=== PATIENT | male | born 1945 | race Caucasian/White ===

== ENCOUNTER 2024-10-20 22:49 | Outpatient (REF) | payer MEDICARE, SELFPAY ==
[2024-10-20 12:11] LABS: Abs Immature Grans 0.01 10^3/uL (0.0-0.06); Absolute Basophil Count 0.01 10^3/uL (0.0-0.2); Absolute Eosinophil Count 0.08 10^3/uL (0.0-0.7); Absolute Monocyte Count 0.26 10^3/uL (0.1-0.8); Absolute Neutrophil Count 1.53 10^3/uL (1.2-6.7); Basophils % 0.4 %; Eosinophils % 3.3 %; HCT 36.3 % (40.0-50.0); HGB 12.2 g/dL (13.5-17.5); Immature Grans % 0.4 %; Lymphocytes % 20.9 %; MCH 30.3 pg (27.0-33.0); MCHC 33.6 % (32.0-36.0); MCV 90 fL (80-95); MPV 9.9 fL (8.0-11.0); Monocytes % 10.9 %; Neutrophils % 64.1 %; Platelet Count 171 10^3/uL (130-400); RBC 4.03 10^6/uL (4.36-5.78); RDW 15.7 % (11.8-14.1); RDW-SD 52.1 fL; WBC 2.39 10^3/uL (4.4-10.8)
[2024-10-21 10:08] LABS: IgG 943 mg/dL (610-1616)
== END 2024-10-20 22:50 | disposition home or self-care (01) ==
LOC: LBN 22:49
PROVIDERS: Internal Medicine Hematology & Oncology; PCP Internal Medicine; Visit Provider Nurse Practitioner Adult Health
DX: D80.1 Nonfamilial hypogammaglobulinemia (principal); C91.10 Chronic lymphocytic leukemia of B-cell type not having achieved remission; B60.00 Babesiosis, unspecified
CPT/HCPCS: 82784; 85025

== ENCOUNTER 2025-02-02 02:53 | Outpatient (CLI) | payer MEDICARE, SELFPAY ==
[2025-02-02 08:59] LABS: Abs Immature Grans 0.06 10^3/uL (0.0-0.06); Absolute Basophil Count 0.02 10^3/uL (0.0-0.2); Absolute Eosinophil Count 0.03 10^3/uL (0.0-0.7); Absolute Lymphocyte Count 0.35 10^3/uL (1.2-3.4); Absolute Neutrophil Count 2.13 10^3/uL (1.2-6.7); Basophils % 0.7 %; Eosinophils % 1.1 %; HCT 30.6 % (40.0-50.0); Immature Grans % 2.2 %; Lymphocytes % 12.5 %; MCH 31.1 pg (27.0-33.0); MCHC 32.7 % (32.0-36.0); MCV 95 fL (80-95); MPV 9.1 fL (8.0-11.0); Monocytes % 7.2 %; Neutrophils % 76.3 %; Nucleated RBC 0.7 % (0.0-0.3); Platelet Count 312 10^3/uL (130-400); RBC 3.22 10^6/uL (4.36-5.78); RDW 26.8 % (11.8-14.1); RDW-SD 87.2 fL; Reticulocyte 3.1 % (0.5-2.4); WBC 2.79 10^3/uL (4.4-10.8)
[2025-02-02 09:15] LABS: Anisocytosis 2+; Diff Comment RBC Morph Reviewed
[2025-02-02 09:41] LABS: ALT 46 U/L (16-63); AST 41 U/L (15-37); Albumin 3.5 g/dL (3.4-5.0); Alkaline Phosphatase 147 U/L (46-116); Anion Gap 6.6 mmol/L (3-11); BUN 25 mg/dL (7-18); Bilirubin, Total 0.5 mg/dL (0.2-1.0); CO2 28.4 mmol/L (21.0-32.0); CREATININE 0.8 mg/dL (0.70-1.30); Calcium 9.2 mg/dL (8.5-10.1); Chloride 106 mmol/L (98-107); Estimated GFR 90.02 (mL/min/1.73m2); Glucose 78 mg/dL (74-106); Potassium 3.7 mmol/L (3.5-5.1); Sodium 141 mmol/L (136-145); Total Protein 6.6 g/dL (6.4-8.2)
[2025-02-02 09:42] LABS: Ferritin > 2000 ng/mL (26-388); Folate > 20.0 ng/mL (8.6-20.0)
[2025-02-02 09:54] LABS: LDH 464 U/L (85-227)
[2025-02-02 18:08] LABS: Fibrinogen 318 mg/dL (171-384)
[2025-02-03 07:55] LABS: IgA 17 mg/dL (85-499); IgG 534 mg/dL (610-1616); IgM 30 mg/dL (35-242)
== END 2025-02-02 02:54 | disposition home or self-care (01) ==
PROVIDERS: PCP Internal Medicine; Visit Provider Internal Medicine Hematology & Oncology
DX: C91.12 Chronic lymphocytic leukemia of B-cell type in relapse (principal); D76.1 Hemophagocytic lymphohistiocytosis; D80.1 Nonfamilial hypogammaglobulinemia; B60.00 Babesiosis, unspecified
CPT/HCPCS: 36415; 80053; 82784; 85384; 86850; 86900; 86901; 82728; 82746; 83615; 85025; 85045

== ENCOUNTER 2025-04-20 09:41 | Outpatient (CLI) | payer MEDICARE, SELFPAY ==
[2025-04-20 09:56] LABS: Ferritin 1645 ng/mL (26-388)
[2025-04-20 10:06] LABS: LDH 239 U/L (85-227)
[2025-04-20 21:48] LABS: Fibrinogen 291 mg/dL (171-384)
== END 2025-04-20 09:42 | disposition home or self-care (01) ==
LOC: LBO 09:41
PROVIDERS: PCP Internal Medicine; Visit Provider Internal Medicine Hematology & Oncology
DX: C91.12 Chronic lymphocytic leukemia of B-cell type in relapse (principal)
CPT/HCPCS: 36415; 85384; 82728; 83615; 85045